=== PATIENT | female | born 1960 | race Caucasian/White ===

== ENCOUNTER 2016-08-11 09:38 | Inpatient (IN) | payer OTHER ==
[~2016-08-11] VITALS: Ht 162.6 cm; Wt 103.3 kg
[~2016-08-11 09:38] MED LIST: FOLIC ACID1 MG PO; IRON325 MG PO; PLAQUENIL200 MG PO; TREXALL15 MG PO; VITAMIN D31000 UNIT PO
[2016-08-11 10:21] VITALS: BP 132/86
[2016-08-11 17:53] LABS: MCV 90.3 FL (83-99)
[2016-08-11 18:14] LABS: TROP-I INTERPRETATION NEGATIVE; TROPONIN-I < 0.01 ng/mL (0.0-0.30)
[2016-08-11 20:01] VITALS: BP 96/54
[2016-08-11 20:05] VITALS: BP 96/54
[2016-08-12 00:14] VITALS: BP 99/56
[2016-08-12 01:28] LABS: TROP-I INTERPRETATION NEGATIVE; TROPONIN-I < 0.01 ng/mL (0.0-0.30)
[2016-08-12 04:52] VITALS: BP 113/63
[2016-08-12 06:16] LABS: TROP-I INTERPRETATION NEGATIVE; TROPONIN-I < 0.01 ng/mL (0.0-0.30)
[2016-08-12 06:48] LABS: ANION GAP 10 MEQ/L (2-14); CHLORIDE 104 MEQ/L (99-109); GFR ESTIMATE (CALCULATED) > 59 mL/min/; GLUCOSE 127 mg/dL (70-99); POTASSIUM 3.9 MEQ/L (3.7-5.4); SAMPLE HEMOLYSIS CHECK 0; SAMPLE ICTERIC CHECK 0; SAMPLE LIPEMIA CHECK 0; SODIUM 140 MEQ/L (136-147); UREA NITROGEN (BUN) 13 mg/dL (9-23)
[2016-08-12 08:00] VITALS: BP 106/55
[2016-08-12 12:03] VITALS: BP 132/75
[2016-08-12 16:14] VITALS: BP 121/65
[2016-08-13 00:06] VITALS: BP 133/71
[2016-08-13 05:01] VITALS: BP 118/68
[2016-08-13 08:04] VITALS: BP 130/66
[2016-08-13 09:17] LABS: HEMATOCRIT 31.4 % (36.0-46.0); MCH 30.4 PG (29.0-34.0); MCHC 33.4 G/DL (30.0-36.0); MEAN PLAT.VOLUME 9.3 uM^3 (9.5-12.4); RBC DIS.WIDTH-SD 39.7 % (39-53)
[2016-08-13 09:19] LABS: PLATELET COUNT 229 K/uL (156-360); RED BLOOD COUNT 3.45 M/uL (3.80-5.20); WHITE BLOOD COUNT 11.7 K/uL (4.1-10.2)
[2016-08-13 09:54] LABS: ANION GAP 10 MEQ/L (2-14); CHLORIDE 100 MEQ/L (99-109); GFR ESTIMATE (CALCULATED) > 59 mL/min/; GLUCOSE 138 mg/dL (70-99); POTASSIUM 3.9 MEQ/L (3.7-5.4); SAMPLE HEMOLYSIS CHECK 1; SAMPLE ICTERIC CHECK 0; SAMPLE LIPEMIA CHECK 0; SODIUM 134 MEQ/L (136-147); UREA NITROGEN (BUN) 6 mg/dL (9-23)
[2016-08-13 17:15] VITALS: BP 124/71
[2016-08-13 19:45] VITALS: BP 121/69
[2016-08-13 23:49] VITALS: BP 131/60
[2016-08-14 05:01] VITALS: BP 110/69
[2016-08-14 08:33] VITALS: BP 126/59
[2016-08-14] MEDS ORDERED: BENADRYL25 MG PO (09:29)
[2016-08-14] MEDS ORDERED: SENNA PLUS TAB1 EACH PO (09:32)
[2016-08-14] MEDS ORDERED: XARELTO15 MG PO (09:33)
[2016-08-14] MEDS ORDERED: OXYCODONE HCL5 MG PO (09:33)
[2016-08-14 11:36] VITALS: BP 147/79
[2016-08-14 13:15] LABS: HEMATOCRIT 27.1 % (36.0-46.0); MCH 30.3 PG (29.0-34.0); MCHC 33.6 G/DL (30.0-36.0); MCV 90.3 FL (83-99); MEAN PLAT.VOLUME 9.3 uM^3 (9.5-12.4); PLATELET COUNT 221 K/uL (156-360); RBC DIS.WIDTH-CV 11.9 % (11.8-14.6); RBC DIS.WIDTH-SD 38.9 % (39-53); WHITE BLOOD COUNT 10.3 K/uL (4.1-10.2)
[2016-08-14 13:32] LABS: CHLORIDE 98 mEq/L (99-109); POTASSIUM 3.6 mEq/L (3.7-5.4); SODIUM 134 mEq/L (136-147)
[2016-08-14 13:33] LABS: GLUCOSE 111 mg/dL (70-99)
[2016-08-14 13:35] LABS: ANION GAP 10 MEQ/L (2-14)
[2016-08-14 13:37] LABS: GFR ESTIMATE (CALCULATED) > 59 mL/min/
[2016-08-14 13:38] LABS: UREA NITROGEN (BUN) 9 mg/dL (9-23)
[2016-08-14 13:44] LABS: TROP-I INTERPRETATION NEGATIVE; TROPONIN-I < 0.01 ng/mL (0.0-0.30)
[2016-08-14 16:48] VITALS: BP 130/65
[2016-08-14 18:36] LABS: TROP-I INTERPRETATION NEGATIVE; TROPONIN-I < 0.01 ng/mL (0.0-0.30)
[2016-08-14 19:20] LABS: ADD MIUA? NO; BILIRUBIN NEGATIVE; BLOOD NEGATIVE; COLOR YELLOW ((YELLOW)); GLUCOSE (STRIP) NEGATIVE; KETONES 20; LEUKOCYTES NEGATIVE; NITRITE NEGATIVE; PROTEIN (STRIP) NEGATIVE; UCUL ADDED? NO; UROBILINOGEN 0.2 MG/DL (0.2-1.0)
[2016-08-14 20:14] VITALS: BP 126/69
[2016-08-14 23:58] LABS: TROP-I INTERPRETATION NEGATIVE; TROPONIN-I < 0.01 ng/mL (0.0-0.30)
[2016-08-15] VITALS (16 sets, daily range): BP systolic 107–165; BP diastolic 57–79
[2016-08-15] MEDS ORDERED: XARELTO15 MG PO (09:07)
[2016-08-15 10:30] LABS: MCH 30.1 PG (29.0-34.0); MCHC 33.1 G/DL (30.0-36.0); MCV 90.9 FL (83-99); MEAN PLAT.VOLUME 9.7 uM^3 (9.5-12.4); PLATELET COUNT 271 K/uL (156-360); RBC DIS.WIDTH-CV 11.9 % (11.8-14.6); RBC DIS.WIDTH-SD 39.1 % (39-53); RED BLOOD COUNT 2.86 M/uL (3.80-5.20)
[2016-08-15 10:52] LABS: ALKALINE PHOSPHATASE 61 IU/L (3-129); ANION GAP 11 MEQ/L (2-14); CHLORIDE 97 MEQ/L (99-109); GFR ESTIMATE (CALCULATED) > 59 mL/min/; GLUCOSE 120 mg/dL (70-99); POTASSIUM 3.7 MEQ/L (3.7-5.4); SAMPLE HEMOLYSIS CHECK 0; SAMPLE ICTERIC CHECK 0; SAMPLE LIPEMIA CHECK 0; SODIUM 134 MEQ/L (136-147); TOTAL BILIRUBIN 0.8 MG/DL (0.0-1.0); UREA NITROGEN (BUN) 11 mg/dL (9-23)
[2016-08-15 13:31] LABS: BASE EXCESS 4.2 mEq/L (-3 to +3); BICARBONATE 23.5 mEq/L (22-26); CARBOXY HGB 1.8 % (0-5); METHEMOGLOBIN 1.7 % (0-1.5); PCO2 19 mm Hg (35-45); PO2 58 mm Hg (80-100)
[2016-08-15 13:33] LABS: COMMENTS - BLOOD GASES A+C+; DEVICE NC; O2 FLOW 5 L/MIN; SITE LRA; TOTAL RESP RATE 48 resp/min
[2016-08-15 13:42] LABS: POINT-OF-CARE METER ID UU14188577
[2016-08-15 13:42] LABS: HEMATOCRIT 26.7 % (36.0-46.0); MCH 30.4 PG (29.0-34.0); MCHC 34.5 G/DL (30.0-36.0); MCV 88.1 FL (83-99); MEAN PLAT.VOLUME 9.4 uM^3 (9.5-12.4); PLATELET COUNT 303 K/uL (156-360); RBC DIS.WIDTH-CV 11.8 % (11.8-14.6); RBC DIS.WIDTH-SD 37.5 % (39-53); RED BLOOD COUNT 3.03 M/uL (3.80-5.20); WHITE BLOOD COUNT 9.4 K/uL (4.1-10.2)
[2016-08-15 13:43] LABS: CARBOXY HGB 1.3 % (0-5); METHEMOGLOBIN 1.4 % (0-1.5); PCO2 < 19 mm Hg (35-45); PO2 179 mm Hg (80-100); pH 7.74 (7.35-7.45)
[2016-08-15 13:44] LABS: COMMENTS - BLOOD GASES A+C+; DEVICE VENTI MASK; O2 FLOW 8 L/MIN; SITE LRA
[2016-08-15 13:45] LABS: TOTAL RESP RATE 35 resp/min
[2016-08-15 14:08] LABS: ANION GAP 15 MEQ/L (2-14); CHLORIDE 97 MEQ/L (99-109); POTASSIUM 3.3 MEQ/L (3.7-5.4); SAMPLE HEMOLYSIS CHECK 0; SAMPLE ICTERIC CHECK 0; SAMPLE LIPEMIA CHECK 0; SODIUM 133 MEQ/L (136-147)
[2016-08-15 14:14] LABS: GFR ESTIMATE (CALCULATED) > 59 mL/min/; GLUCOSE 129 mg/dL (70-99); UREA NITROGEN (BUN) 12 mg/dL (9-23)
[2016-08-15 14:50] LABS: BASOPHIL COUNT 0.1 K/uL (0-0.1); EOSINOPHIL (%) 1.2 % (0-5); EOSINOPHIL COUNT 0.1 K/uL (0-0.3); HEMATOCRIT 26.7 % (36.0-46.0); IMMATURE GRANULOCYTE (%) 1.3 % (0.0-0.7); IMMATURE GRANULOCYTE COUNT 0.1 K/uL; INSTRUMENT ABS NEUTROPHIL CT 6.9 K/uL; MCH 29.6 PG (29.0-34.0); MCHC 33.3 G/DL (30.0-36.0); MCV 88.7 FL (83-99); MEAN PLAT.VOLUME 9.3 uM^3 (9.5-12.4); MONOCYTE COUNT 0.6 K/uL (0-0.8); NEUTROPHIL (%) 78.8 % (45-76); NEUTROPHIL COUNT 6.9 K/uL (1.8-6.4); PLATELET COUNT 284 K/uL (156-360); RBC DIS.WIDTH-CV 11.7 % (11.8-14.6); RED BLOOD COUNT 3.01 M/uL (3.80-5.20); WHITE BLOOD COUNT 8.7 K/uL (4.1-10.2)
[2016-08-15 15:03] LABS: INTER. NORMALIZED RATIO 1.4; PROTHROMBIN TIME 14.7 (9.2-11.2); PTT 42.6 (25-32)
[2016-08-15 15:06] LABS: ANION GAP 13 MEQ/L (2-14); CHLORIDE 98 MEQ/L (99-109); POTASSIUM 4.1 MEQ/L (3.7-5.4); SAMPLE HEMOLYSIS CHECK 0; SAMPLE ICTERIC CHECK 0; SAMPLE LIPEMIA CHECK 0; SODIUM 134 MEQ/L (136-147)
[2016-08-15 15:11] LABS: ALKALINE PHOSPHATASE 61 IU/L (3-129); GFR ESTIMATE (CALCULATED) > 59 mL/min/; GLUCOSE 134 mg/dL (70-99); UREA NITROGEN (BUN) 12 mg/dL (9-23)
[2016-08-15 15:15] LABS: TROP-I INTERPRETATION NEGATIVE; TROPONIN-I < 0.01 ng/mL (0.0-0.30)
[2016-08-15 15:38] LABS: CK-MB 0.5 ng/mL (0.0-4.9)
[2016-08-15 15:46] LABS: CREATINE KINASE 119 IU/L (1-294); TOTAL CK 119 IU/L (1-294)
[2016-08-15 15:49] LABS: CREATINE KINASE 119 IU/L (1-294)
[2016-08-15 15:49] LABS: METH RESISTANT S AUREUS PCR NEGATIVE (NEGATIVE); PROBE CHECK PASS; SPECIMEN PROCESSING CONTROL PASS
[2016-08-15 15:50] LABS: CK-MB 0.5 ng/mL (0.0-4.9); TOTAL CK 119 IU/L (1-294)
[2016-08-15 16:06] LABS: ADD MIUA? NO; BILIRUBIN NEGATIVE; BLOOD NEGATIVE; COLOR YELLOW ((YELLOW)); GLUCOSE (STRIP) NEGATIVE; KETONES 80; LEUKOCYTES NEGATIVE; NITRITE NEGATIVE; PROTEIN (STRIP) NEGATIVE; SPECIFIC GRAVITY 1.041 (1.000-1.030); UCUL ADDED? NO; UROBILINOGEN 0.2 MG/DL (0.2-1.0)
[2016-08-15 16:26] LABS: UR CREATININE CONCENTRATION 101.8 MG/DL
[2016-08-15 17:20] LABS: BASE EXCESS 2.2 mEq/L (-3 to +3); BICARBONATE 21.9 mEq/L (22-26); CARBOXY HGB 1.7 % (0-5); COMMENTS - BLOOD GASES A+C+; DEVICE NC; METHEMOGLOBIN 1.5 % (0-1.5); O2 FLOW 3 L/MIN; PCO2 19 mm Hg (35-45); PO2 127 mm Hg (80-100); SITE RR; pH 7.67 (7.35-7.45)
[2016-08-15 17:21] LABS: TOTAL RESP RATE 28 resp/min
[2016-08-15 20:22] LABS: CREATINE KINASE 113 IU/L (1-294); TOTAL CK 113 IU/L (1-294)
[2016-08-15 20:23] LABS: CK-MB 0.6 ng/mL (0.0-4.9)
[2016-08-15 20:24] LABS: TROP-I INTERPRETATION NEGATIVE; TROPONIN-I < 0.01 ng/mL (0.0-0.30)
[2016-08-15 21:07] LABS: URIC ACID 4.1 mg/dL (3.1-9.2)
[2016-08-15 21:25] LABS: POINT-OF-CARE METER ID UU13113803; POINT-OF-CARE USER ID RADDRS44
[2016-08-16] VITALS (19 sets, daily range): BP systolic 90–160; BP diastolic 47–83
[2016-08-16 03:17] LABS: CARBON DIOXIDE (BICARBONATE) 26.6 MEQ/L (20-31)
[2016-08-16 03:34] LABS: CREATINE KINASE 116 IU/L (1-294); TOTAL CK 116 IU/L (1-294)
[2016-08-16 03:38] LABS: TROP-I INTERPRETATION NEGATIVE; TROPONIN-I < 0.01 ng/mL (0.0-0.30)
[2016-08-16 03:40] LABS: CK-MB 0.5 ng/mL (0.0-4.9)
[2016-08-16 08:31] LABS: POINT-OF-CARE METER ID UU13113803
[2016-08-16 09:33] LABS: TROP-I INTERPRETATION NEGATIVE; TROPONIN-I < 0.01 ng/mL (0.0-0.30)
[2016-08-16 10:31] LABS: CREATINE KINASE 89 IU/L (1-294); TOTAL CK 89 IU/L (1-294)
[2016-08-16 10:36] LABS: CK-MB 0.7 ng/mL (0.0-4.9)
[2016-08-16 12:31] LABS: POINT-OF-CARE METER ID UU13113803
[2016-08-16 17:32] LABS: POINT-OF-CARE METER ID UU13113803
[2016-08-16 21:43] LABS: POINT-OF-CARE METER ID UU14188577
[2016-08-17 00:14] VITALS: BP 119/67
[2016-08-17 03:44] VITALS: BP 126/67
[2016-08-17 06:38] LABS: POINT-OF-CARE METER ID UU14188577
[2016-08-17 07:02] VITALS: BP 115/58
[2016-08-17 09:41] LABS: ALKALINE PHOSPHATASE 53 IU/L (3-129); ANION GAP 9 MEQ/L (2-14); CHLORIDE 101 MEQ/L (99-109); GFR ESTIMATE (CALCULATED) > 59 mL/min/; GLUCOSE 103 mg/dL (70-99); POTASSIUM 3.6 MEQ/L (3.7-5.4); SAMPLE HEMOLYSIS CHECK 0; SAMPLE ICTERIC CHECK 0; SAMPLE LIPEMIA CHECK 0; SODIUM 135 MEQ/L (136-147); TOTAL BILIRUBIN 0.8 MG/DL (0.0-1.0); UREA NITROGEN (BUN) 7 mg/dL (9-23)
[2016-08-17 11:33] LABS: POINT-OF-CARE METER ID UU14188577
[2016-08-17 15:02] VITALS: BP 114/60
[2016-08-17 19:48] VITALS: BP 128/68
[2016-08-17 23:17] VITALS: BP 115/57
[2016-08-18] VITALS (9 sets, daily range): BP systolic 115–136; BP diastolic 57–74
[2016-08-18 06:19] LABS: HEMATOCRIT 22.3 % (36.0-46.0); MCH 30.4 PG (29.0-34.0); MCHC 32.7 G/DL (30.0-36.0); MCV 92.9 FL (83-99); MEAN PLAT.VOLUME 8.9 uM^3 (9.5-12.4); NRBC (%) 0.3 /100 WBC (0-0); PLATELET COUNT 332 K/uL (156-360); RBC DIS.WIDTH-CV 12.4 % (11.8-14.6); RBC DIS.WIDTH-SD 40.4 % (39-53); WHITE BLOOD COUNT 9.3 K/uL (4.1-10.2)
[2016-08-18 06:25] LABS: POINT-OF-CARE METER ID UU14188577
[2016-08-18 06:42] LABS: ANION GAP 7 MEQ/L (2-14); CHLORIDE 105 MEQ/L (99-109); GFR ESTIMATE (CALCULATED) > 59 mL/min/; GLUCOSE 93 mg/dL (70-99); MAGNESIUM 2.1 mg/dl (1.3-2.7); POTASSIUM 3.5 MEQ/L (3.7-5.4); SAMPLE HEMOLYSIS CHECK 0; SAMPLE ICTERIC CHECK 0; SAMPLE LIPEMIA CHECK 0; SODIUM 137 MEQ/L (136-147); UREA NITROGEN (BUN) 7 mg/dL (9-23)
[2016-08-18 08:25] LABS: ABSOLUTE RETICULOCYTE CT. 0.1 M/uL (0.02-0.08); IMM.RETIC FRACTION 47.1 % (3-19); RETIC HGB EQUIVALENT 32.1 (28-36); RETICULOCYTE COUNT 5.4 % (0.5-1.8)
[2016-08-18 08:40] LABS: IRON 48 MCG/DL (35-150)
[2016-08-18 08:55] LABS: FERRITIN 417 NG/ML (10-291)
[2016-08-18 11:34] LABS: POINT-OF-CARE METER ID UU14149397
[2016-08-18 21:33] LABS: POINT-OF-CARE METER ID UU14188577
[2016-08-18 23:28] LABS: INTER. NORMALIZED RATIO 1.1; PROTHROMBIN TIME 11.6 (9.2-11.2); PTT 56.7 (25-32)
[2016-08-19 04:54] VITALS: BP 139/69
[2016-08-19 05:40] LABS: INTER. NORMALIZED RATIO 1.2; PROTHROMBIN TIME 11.9 (9.2-11.2); PTT 62.6 (25-32)
[2016-08-19 08:25] VITALS: BP 131/68
[2016-08-19 11:32] VITALS: BP 125/69
[2016-08-19 12:21] LABS: HEMATOCRIT 28.6 % (36.0-46.0); MCH 29.9 PG (29.0-34.0); MCHC 33.2 G/DL (30.0-36.0); MCV 89.9 FL (83-99); MEAN PLAT.VOLUME 8.7 uM^3 (9.5-12.4); NRBC (%) 0.6 /100 WBC (0-0); RBC DIS.WIDTH-CV 13.2 % (11.8-14.6); RBC DIS.WIDTH-SD 41.3 % (39-53); WHITE BLOOD COUNT 10.4 K/uL (4.1-10.2)
[2016-08-19 12:23] LABS: PLATELET COUNT 432 K/uL (156-360); RED BLOOD COUNT 3.18 M/uL (3.80-5.20)
[2016-08-19 12:27] LABS: CHLORIDE 104 mEq/L (99-109); POTASSIUM 4.2 mEq/L (3.7-5.4); SODIUM 138 mEq/L (136-147)
[2016-08-19 12:29] LABS: GLUCOSE 114 mg/dL (70-99)
[2016-08-19 12:30] LABS: ANION GAP 12 MEQ/L (2-14)
[2016-08-19 12:31] LABS: TOTAL BILIRUBIN 1.6 mg/dL (0.0-1.0)
[2016-08-19 12:32] LABS: ALKALINE PHOSPHATASE 62 IU/L (3-129)
[2016-08-19 12:33] LABS: GFR ESTIMATE (CALCULATED) > 59 mL/min/
[2016-08-19 12:34] LABS: UREA NITROGEN (BUN) 8 mg/dL (9-23)
[2016-08-19 15:20] VITALS: BP 127/71
[2016-08-19 19:58] VITALS: BP 142/68
[2016-08-19 23:53] VITALS: BP 147/69
[2016-08-20 03:14] VITALS: BP 122/73
[2016-08-20 05:55] LABS: HEMATOCRIT 29.3 % (36.0-46.0); MCH 29.8 PG (29.0-34.0); MCHC 32.1 G/DL (30.0-36.0); MEAN PLAT.VOLUME 8.5 uM^3 (9.5-12.4); NRBC (%) 0.6 /100 WBC (0-0); PLATELET COUNT 437 K/uL (156-360); RBC DIS.WIDTH-CV 13.4 % (11.8-14.6); RBC DIS.WIDTH-SD 42.5 % (39-53); RED BLOOD COUNT 3.15 M/uL (3.80-5.20); WHITE BLOOD COUNT 10.9 K/uL (4.1-10.2)
[2016-08-20 06:14] LABS: INTER. NORMALIZED RATIO 1.4
[2016-08-20 08:25] VITALS: BP 127/67
[2016-08-20] MEDS ORDERED: LOVENOX100 MG/1 M SC (11:16)
[2016-08-20] MEDS ORDERED: TYLENOL REGULA325 MG PO (11:17)
[2016-08-20] MEDS ORDERED: BISAC-EVAC10 MG PR (11:17)
[2016-08-20] MEDS ORDERED: TRAMADOL HCL50 MG PO (11:18)
[2016-08-20] MEDS ORDERED: COUMADIN5 MG PO (11:20)
[2016-08-20 11:40] LABS: POINT-OF-CARE METER ID UU14149397
[2016-08-20 12:09] VITALS: BP 135/72
== END 2016-08-20 15:52 | DRG 469 ==
LOC: 2SOUTH 09:38 → 3EAST 10:03 → 2SOUTH 10:03 → 4WEST 10:03 → 2SOUTH 10:34 → 3EAST 20:00 → 4WEST 08-15 13:55 → 3EAST 08-16 21:07
PROVIDERS: Hospitalist; Internal Medicine; Internal Medicine Nephrology; Internal Medicine Pulmonary Disease; Orthopaedic Surgery Sports Medicine; Physician Assistant; Psychiatry & Neurology Neurology
PROC: 0SRC0J9 Replacement of Right Knee Joint with Synthetic Substitute, Cemented, Open Approach (ICD-10-PCS; principal; 2016-08-11)
DX: M17.11 Unilateral primary osteoarthritis, right knee (principal); J96.01 Acute respiratory failure with hypoxia; I82.431 Acute embolism and thrombosis of right popliteal vein; E87.1 Hypo-osmolality and hyponatremia; R07.89 Other chest pain; M06.9 Rheumatoid arthritis, unspecified; E87.3 Alkalosis; G93.89 Other specified disorders of brain; E87.8 Other disorders of electrolyte and fluid balance, not elsewhere classified; E83.39 Other disorders of phosphorus metabolism; R73.03 Prediabetes; M72.2 Plantar fascial fibromatosis; E66.9 Obesity, unspecified; I44.0 Atrioventricular block, first degree; M25.461 Effusion, right knee; E87.6 Hypokalemia; F41.9 Anxiety disorder, unspecified; R55 Syncope and collapse; D64.9 Anemia, unspecified; Z68.39 Body mass index [BMI] 39.0-39.9, adult; Z90.49 Acquired absence of other specified parts of digestive tract
CPT/HCPCS: 36600; 70450; 71020; 71275; 73560; 73706; 78582; 80048; 80048 91; 80053; 81003; 82436; 82550; 82550 91; 82553; 82570; 82607; 82728; 82803; 82948; 83540; 83605; 83735; 84100; 84133; 84156; 84300; 84466; 84484; 84550; 85014; 85018; 85025; 85027; 85045; 85610; 85730; 86900; 86901; 86920; 87040; 87641; 88305; 93005; 93306; 93880; 93971; 94799; 97530 GO; 97530 GP; 99202; A9540; A9567; C1713; J0131; J0690; J1170; J1650; J1815; J1885; J2060; J2250; J2270; J2405; J2795; J3010; J3480; J7030; J7050; J8610; P9016; S0028